=== PATIENT | female | born 1980 | race Two or more races ===

== ENCOUNTER 2017-03-09 03:45 | Emergency (ER) | payer SELFPAY ==
[~2017-03-09] VITALS: Ht 139.7 cm; Wt 70.8 kg
--- NOTE | 2017-03-09 03:48 | PHYS DOC ---
Past Medical History Past Medical History: Diabetes-Type II Past Surgical History: Other Additional Past Surgical Histo: vaginal surgery Alcohol Use: None Drug Use: None Adult General Chief Complaint Chief Complaint: VAGINAL BLEEDING HPI HPI Patient is a 36 year old female who presents with vaginal bleeding abdominal pain. She is a G3 P 3 whose LMP was February 22, 2017 and she did home test was positive. She states she started having pain yesterday in the afternoon in the day when she was using the bathroom and wiped she noticed some blood on her toilet paper. She denies any vaginal discharge. She did have some severe pain and started yesterday. Been constant in nature. She states nothing makes it better or worse. She denies any history of surgeries on her abdomen. He is not have an OB here in the , her babies were delivered in [facility]. Review of Systems Review of Systems Constitutional: Denies fever or chills [] Eyes: Denies change in visual acuity, redness, or eye pain [] HENT: Denies nasal congestion or sore throat [] Respiratory: Denies cough or shortness of breath [] Cardiovascular: No additional information not addressed in HPI [] GI: Positive for abdominal pain, Denies nausea, vomiting, bloody stools or diarrhea [] : Denies dysuria or hematuria [] Musculoskeletal: Denies back pain or joint pain [] Integument: Denies rash or skin lesions [] Neurologic: Denies headache, focal weakness or sensory changes [] Endocrine: Denies polyuria or polydipsia [] All other systems were reviewed and found to be within normal limits, except as documented in this note. Allergies Allergies Allergies Coded Allergies Type Severity Reaction Last Updated Verified No Known Drug Allergies 01/26/14 No Physical Exam Physical Exam Constitutional: Well developed, well nourished, no acute distress, non-toxic appearance. [] HENT: Normocephalic, atraumatic, bilateral external ears normal, oropharynx moist, no oral exudates, nose normal. [] Eyes: PERRLA, EOMI, conjunctiva normal, no discharge. [] Neck: Normal range of motion, no tenderness, supple, no stridor. [] Cardiovascular:Heart rate regular rhythm, no murmur [] Lungs & Thorax: Bilateral breath sounds clear to auscultation [] Abdomen Pelvic Exam: Help Desk Technician present Abdomen: Nontender External Genitalia: Normal Skin Speculum: Normal vaginal mucosa, minimal blood noted in the vault Bimanual: No adnexal masses or tenderness, No CMT: Bowel sounds normal, soft, mild tenderness palpation suprapubic area, no rebound or guarding, no masses, no pulsatile masses. [] Skin: Warm, dry, no erythema, no rash. [] Back: No tenderness, no CVA tenderness. [] Extremities: No tenderness, no cyanosis, no clubbing, ROM intact, no edema. [] Neurologic: Alert and oriented X 3, normal motor function, normal sensory function, no focal deficits noted. [] Psychologic: Affect normal, judgement normal, mood normal. [] Current Patient Data Vital Signs Vital Signs Date Time Temp Pulse Resp B/P (MAP) Pulse Ox O2 Delivery O2 Flow Rate FiO2 03/09/17 04:00 98.8 68 16 112/65 (81) 98 Room Air 98.8 Lab Values Laboratory Tests Test 03/09/17 04:15 03/09/17 04:19 03/09/17 04:20 Urine Collection Type Unknown Urine Color Yellow Urine Clarity Clear Urine pH 6.0 Urine Specific [place] >=1.030 Urine Protein Negative mg/dL (NEG-TRACE) Urine Glucose (UA) >=1000 mg/dL (NEG) Urine Ketones (Stick) Negative mg/dL (NEG) Urine Blood Large (NEG) Urine Nitrite Negative (NEG) Urine Bilirubin Negative (NEG) Urine Urobilinogen Dipstick 0.2 mg/dL (0.2 mg/dL) Urine Leukocyte Esterase Negative (NEG) Urine RBC 11-20 /HPF (0-2) Urine WBC 5-10 /HPF (0-4) Urine Squamous Epithelial Cells Mod /LPF Urine Bacteria Moderate /HPF (0-FEW) Urine Mucus Mod /LPF POC Urine HCG, Qualitative Hcg positive (Negative) White Blood Count 8.0 x10^3/uL (4.0-11.0) Red Blood Count 4.55 x10^6/uL (3.50-5.40) Hemoglobin 13.7 g/dL (12.0-15.5) Hematocrit 40.8 % (36.0-47.0) Mean Corpuscular Volume 90 fL (79-100) Mean Corpuscular Hemoglobin 30 pg (25-35) Mean Corpuscular Hemoglobin Concent 34 g/dL (31-37) Red Cell Distribution Width 13.1 % (11.5-14.5) Platelet Count 243 x10^3/uL (140-400) Neutrophils (%) (Auto) 55 % (31-73) Lymphocytes (%) (Auto) 36 % (24-48) Monocytes (%) (Auto) 7 % (0-9) Eosinophils (%) (Auto) 1 % (0-3) Basophils (%) (Auto) 0 % (0-3) Neutrophils # (Auto) 4.4 x10^3uL (1.8-7.7) Lymphocytes # (Auto) 2.9 x10^3/uL (1.0-4.8) Monocytes # (Auto) 0.6 x10^3/uL (0.0-1.1) Eosinophils # (Auto) 0.1 x10^3/uL (0.0-0.7) Basophils # (Auto) 0.0 x10^3/uL (0.0-0.2) Prothrombin Time 12.9 SEC (11.7-14.0) Prothrombin Time INR 1.0 (0.8-1.1) PTT 26 SEC (24-38) Maternal Serum HCG Beta Subunit 2343 mIU/mL (0-5) H Sodium Level 135 mmol/L (136-145) L Potassium Level 3.8 mmol/L (3.5-5.1) Chloride Level 100 mmol/L (98-107) Carbon Dioxide Level 26 mmol/L (21-32) Anion Gap 9 (6-14) Blood Urea Nitrogen 10 mg/dL (7-20) Creatinine 0.6 mg/dL (0.6-1.0) Estimated GFR (Cockcroft-Gault) 114.4 Glucose Level 255 mg/dL (70-99) H Calcium Level 9.0 mg/dL (8.5-10.1) Total Bilirubin 0.3 mg/dL (0.2-1.0) Direct Bilirubin 0.1 mg/dL (0.0-0.2) Aspartate Amino Transferase (AST) 12 U/L (15-37) L Alanine Aminotransferase (ALT) 22 U/L (14-59) Alkaline Phosphatase 71 U/L (46-116) Total Protein 6.8 g/dL (6.4-8.2) Albumin 3.5 g/dL (3.4-5.0) Laboratory Tests 03/09/17 04:20 Laboratory Tests 03/09/17 04:20 Microbiology 03/09/17 Wet Prep - Final, Complete EKG EKG [] Radiology/Procedures Radiology/Procedures [facility] [address] [place] [address] IMAGING REPORT Signed PATIENT: JEAN-PIERRE SILVEIRA ACCOUNT: [id number] : 1980 LOCATION: ER AGE: 36 SEX: F EXAM STATUS: REG ER ORD. PHYSICIAN: JHONNY GUERRERO MD REASON: bleeding PROCEDURE: OB < 14 WKS INDICATION: SPOTTING , NO HCG QUANT @ THIS TIME, POSITIVE PREG TEST COMPARISON: None. TECHNIQUE: Grayscale and color ultrasound images uterus and adnexa. Transabdominal and transvaginal images obtained. FINDINGS: Uterus: 110 x 62 x 54 mm. Intrauterine gestational sac is identified with a pole with a crown-rump length of 4.4 mm. Heart beat of 88. Small free fluid Right Ovary: 31 x 23 x 14 mm. Left Ovary: 34 x 17 x 16 mm. Vascular flow identified to bilateral ovaries. IMPRESSION: 1. Intrauterine gestational sac is identified with a pole with estimated gestational age of 6 weeks and 1 day with estimated due date of 11/01/2017. heartbeat is 88 at time of examination. This heartbeat is low which could be secondary to very early but close monitoring will be needed to ensure appropriate development given the low heart rate. Electronically signed by: Poly Llanos MD (03/09/2017 5:22 AM) [facility] DICTATED and SIGNED BY: POLY LLANOS MD DATE: 03/09/17 0518 CC: JHONNY GUERRERO MD; NO PCP ~ Impressions: Threatened miscarriage Course & Med Decision Making Course & Med Decision Making Pertinent Labs and Imaging studies reviewed. (See chart for details) Labs, wet prep pending at this time. Patient being checked out to Dr. Mack for final disposition. Dragon Disclaimer Dragon Disclaimer This electronic medical record was generated, in whole or in part, using a voice recognition dictation system. Departure Departure Referrals: NON,STAFF (PCP) JHONNY GUERRERO MD Mar 09, 2017 03:48
[2017-03-09 04:35] LABS: BASO % 0 % (0-3); EOS % 1 % (0-3); HEMATOCRIT 40.8 % (36.0-47.0); HEMOGLOBIN 13.7 g/dL (12.0-15.5); LYMPH # 2.9 x10^3/uL (1.0-4.8); LYMPH % 36 % (24-48); MEAN CORPUSCULAR HEMOGLOBIN 30 pg (25-35); MEAN CORPUSCULAR HGB CONC 34 g/dL (31-37); MEAN CORPUSCULAR VOLUME 90 fL (79-100); MONO % 7 % (0-9); NEUT % 55 % (31-73); PLATELET COUNT 243 x10^3/uL (140-400); RED BLOOD COUNT 4.55 x10^6/uL (3.50-5.40); RED CELL DISTRIBUTION WIDTH 13.1 % (11.5-14.5)
[2017-03-09 04:46] LABS: PROTHROMBIN TIME PATIENT 12.9 SEC (11.7-14.0)
[2017-03-09 04:47] LABS: CREATININE 0.6 mg/dL (0.6-1.0); GFR 114.4; POTASSIUM 3.8 mmol/L (3.5-5.1)
[2017-03-09 04:49] LABS: BILIRUBIN,URINE NEGATIVE (NEG); GLUCOSE,URINE >=1000 mg/dL (NEG); NITRITE,URINE NEGATIVE (NEG); PROTEIN,URINE NEGATIVE (NEG-TRACE); UROBILINOGEN,URINE 0.2 mg/dL (0.2 mg/dL)
[2017-03-09 04:53] LABS: ALBUMIN 3.5 g/dL (3.4-5.0); DIRECT BILIRUBIN 0.1 mg/dL (0.0-0.2); TOTAL BILIRUBIN 0.3 mg/dL (0.2-1.0); TOTAL PROTEIN 6.8 g/dL (6.4-8.2)
[2017-03-09 05:03] LABS: BACTERIA,URINE MODERATE /HPF (0-FEW); SQUAMOUS EPITHELIAL CELL,UR MOD /LPF
--- NOTE | 2017-03-09 05:26 | RAD ---
INDICATION: SPOTTING , NO HCG QUANT @ THIS TIME, POSITIVE PREG TEST COMPARISON: None. TECHNIQUE: Grayscale and color ultrasound images uterus and adnexa. Transabdominal and transvaginal images obtained. FINDINGS: Uterus: 110 x 62 x 54 mm. Intrauterine gestational sac is identified with a pole with a crown-rump length of 4.4 mm. Heart beat of 88. Small free fluid Right Ovary: 31 x 23 x 14 mm. Left Ovary: 34 x 17 x 16 mm. Vascular flow identified to bilateral ovaries. IMPRESSION: 1. Intrauterine gestational sac is identified with a pole with estimated gestational age of 6 weeks and 1 day with estimated due date of 11/01/2017. heartbeat is 88 at time of examination. This heartbeat is low which could be secondary to very early but close monitoring will be needed to ensure appropriate development given the low heart rate. Electronically signed by: Chay Mcclain MD (03/09/2017 5:22 AM) [facility]
[2017-03-09] MEDS ORDERED: fentaNYL PF VIAL 100 MCG/2 ML VIAL IV PRN (06:00)
[2017-03-09] MEDS ORDERED: NITR100C62 PO (06:19)
[2017-03-09 06:33] VITALS: BP 93/54
== END 2017-03-09 06:43 | disposition home or self-care (01) ==
LOC: ER 03:45
DX: O20.0 Threatened abortion (principal); O24.911 Unspecified diabetes mellitus in pregnancy, first trimester; Z3A.01 Less than 8 weeks gestation of pregnancy; Z98.890 Other specified postprocedural states
CPT/HCPCS: 36415; 76801; 80048; 80076; 81001; 81025; 84702; 85025; 85610; 85730; 86900; 86901; 87086; 87491; 87591; 96374; 99285; J3010; Q0111

== ENCOUNTER 2017-03-09 18:29 | Emergency (ER) | payer SELFPAY ==
[~2017-03-09 18:29] MED LIST: NITR100C62 PO
--- NOTE | 2017-03-09 19:27 | PHYS DOC ---
Past Medical History Past Medical History: Diabetes-Type II Past Surgical History: Other Additional Past Surgical Histo: vaginal surgery Alcohol Use: None Drug Use: None Adult General Chief Complaint Chief Complaint: VAGINAL BLEEDING [facility] HPI Patient is a 36 year old female presents the ED complaining of vaginal bleeding 2 hours. Patient states she is 6 weeks . Last menstrual period was January 22, 2017. Patient has not had kids in 16 years. Patient has 3 living children. No history of miscarriages. Complains of lower abdominal cramping. States she was seen in the ED last night around 3 AM. States she was told everything was fine so she went home. Patient returned because she's had some more vaginal bleeding starting around 5pm. No bleeding since that episode. Denies fever, nausea/vomiting, back pain, chest pain, shortness of breath, dizziness, weakness, headache or vision changes. Review of Systems Review of Systems Constitutional: Denies fever or chills [] Eyes: Denies change in visual acuity, redness, or eye pain [] HENT: Denies nasal congestion or sore throat [] Respiratory: Denies cough or shortness of breath [] Cardiovascular: No additional information not addressed in HPI [] GI: Complains of abdominal cramping. Denies nausea, vomiting, bloody stools or diarrhea [] : Denies dysuria or hematuria [] Musculoskeletal: Denies back pain or joint pain [] Integument: Denies rash or skin lesions [] Neurologic: Denies headache, focal weakness or sensory changes [] Endocrine: Denies polyuria or polydipsia [] All other systems were reviewed and found to be within normal limits, except as documented in this note. Allergies Allergies Allergies Coded Allergies Type Severity Reaction Last Updated Verified No Known Drug Allergies 01/26/14 No Physical Exam Physical Exam Constitutional: Well developed, well nourished, no acute distress, non-toxic appearance. [] HENT: Normocephalic, atraumatic, bilateral external ears normal, oropharynx moist, no oral exudates, nose normal. [] Eyes: PERRLA, EOMI, conjunctiva normal, no discharge. [] Neck: Normal range of motion, no tenderness, supple, no stridor. [] Cardiovascular:Heart rate regular rhythm, no murmur [] Lungs & Thorax: Bilateral breath sounds clear to auscultation [] Abdomen: Bowel sounds normal, soft, no tenderness, no masses, no pulsatile masses. [] Refused /pelvic exam. Skin: Warm, dry, no erythema, no rash. [] Back: No tenderness, no CVA tenderness. [] Extremities: No tenderness, no cyanosis, no clubbing, ROM intact, no edema. [] Neurologic: Alert and oriented X 3, normal motor function, normal sensory function, no focal deficits noted. [] Psychologic: Affect normal, judgement normal, mood normal. [] Current Patient Data Vital Signs Vital Signs Date Time Temp Pulse Resp B/P (MAP) Pulse Ox O2 Delivery O2 Flow Rate FiO2 03/09/17 21:50 72 18 96/53 (67) 96 Room Air Lab Values Laboratory Tests Test 03/09/17 19:26 03/09/17 20:05 White Blood Count 8.1 x10^3/uL (4.0-11.0) Red Blood Count 4.77 x10^6/uL (3.50-5.40) Hemoglobin 14.4 g/dL (12.0-15.5) Hematocrit 42.7 % (36.0-47.0) Mean Corpuscular Volume 90 fL (79-100) Mean Corpuscular Hemoglobin 30 pg (25-35) Mean Corpuscular Hemoglobin Concent 34 g/dL (31-37) Red Cell Distribution Width 13.0 % (11.5-14.5) Platelet Count 261 x10^3/uL (140-400) Neutrophils (%) (Auto) 63 % (31-73) Lymphocytes (%) (Auto) 29 % (24-48) Monocytes (%) (Auto) 7 % (0-9) Eosinophils (%) (Auto) 1 % (0-3) Basophils (%) (Auto) 1 % (0-3) Neutrophils # (Auto) 5.1 x10^3uL (1.8-7.7) Lymphocytes # (Auto) 2.3 x10^3/uL (1.0-4.8) Monocytes # (Auto) 0.5 x10^3/uL (0.0-1.1) Eosinophils # (Auto) 0.1 x10^3/uL (0.0-0.7) Basophils # (Auto) 0.1 x10^3/uL (0.0-0.2) Maternal Serum HCG Beta Subunit 2096 mIU/mL (0-5) H Sodium Level 136 mmol/L (136-145) Potassium Level 4.0 mmol/L (3.5-5.1) Chloride Level 101 mmol/L (98-107) Carbon Dioxide Level 27 mmol/L (21-32) Anion Gap 8 (6-14) Blood Urea Nitrogen 8 mg/dL (7-20) Creatinine 0.6 mg/dL (0.6-1.0) Estimated GFR (Cockcroft-Gault) 114.4 BUN/Creatinine Ratio 13 (6-20) Glucose Level 301 mg/dL (70-99) H Calcium Level 9.6 mg/dL (8.5-10.1) Total Bilirubin 0.3 mg/dL (0.2-1.0) Aspartate Amino Transferase (AST) 11 U/L (15-37) L Alanine Aminotransferase (ALT) 23 U/L (14-59) Alkaline Phosphatase 84 U/L (46-116) Total Protein 7.4 g/dL (6.4-8.2) Albumin 3.7 g/dL (3.4-5.0) Albumin/Globulin Ratio 1.0 (1.0-1.7) Urine Collection Type Void Urine Color Yellow Urine Clarity Clear Urine pH 7.5 Urine Specific [place] 1.020 Urine Protein Negative mg/dL (NEG-TRACE) Urine Glucose (UA) >=1000 mg/dL (NEG) Urine Ketones (Stick) Negative mg/dL (NEG) Urine Blood Large (NEG) Urine Nitrite Negative (NEG) Urine Bilirubin Negative (NEG) Urine Urobilinogen Dipstick 0.2 mg/dL (0.2 mg/dL) Urine Leukocyte Esterase Negative (NEG) Urine RBC Tntc /HPF (0-2) Urine WBC 1-4 /HPF (0-4) Urine Squamous Epithelial Cells Occ /LPF Urine Bacteria Few /HPF (0-FEW) Laboratory Tests 03/09/17 19:26 Laboratory Tests 03/09/17 19:26 EKG EKG [] Radiology/Procedures Radiology/Procedures PROCEDURE: OB < 14 WKS OB ultrasound less than 14 weeks and transvaginal OB ultrasound HISTORY: Vaginal bleeding and Sonographic examination of the was performed by transabdominal and endovaginal technique. Multiple static images were obtained. COMPARISON: 4:32 AM OB ultrasound less than 14 weeks: The uterus and ovaries are not well seen due to overlying bowel gas. Transvaginal OB ultrasound: The uterus is homogeneous. The endometrium appears normal and measures 5 mm in thickness. The ovaries are seen with normal blood flow. The left ovary measures 1.7 x 2.6 x 2.1 cm. The right is not seen. IMPRESSION: No sonographic evidence of . Findings consistent with complete miscarriage.[] Course & Med Decision Making Course & Med Decision Making Pertinent Labs and Imaging studies reviewed. (See chart for details) []Discussed lab and imaging findings with patient. Discussed what to be expected over the next few days. On reexamination, abdomen is soft nontender nondistended. No peritoneal signs. Tolerating PO. Sitting up in exam room and talking with family. Patient states she has information to follow up with OB/ [employer]. Discussed importance of follow-up this week. Discussed reasons to return to the ED. Patient understands and agrees with plan. Family at bedside. Dragon Disclaimer Dragon Disclaimer This electronic medical record was generated, in whole or in part, using a voice recognition dictation system. Departure Departure Impression: Primary Impression: Complete miscarriage Disposition: HOME, SELF-CARE Condition: STABLE Referrals: NO PCP (PCP) RENUKA HANKINS MD Patient Instructions: Miscarriage JAMES JERNIGAN Mar 09, 2017 19:27
[2017-03-09 19:45] LABS: BASO # 0.1 x10^3/uL (0.0-0.2); BASO % 1 % (0-3); EOS % 1 % (0-3); HEMATOCRIT 42.7 % (36.0-47.0); HEMOGLOBIN 14.4 g/dL (12.0-15.5); LYMPH # 2.3 x10^3/uL (1.0-4.8); LYMPH % 29 % (24-48); MEAN CORPUSCULAR HEMOGLOBIN 30 pg (25-35); MEAN CORPUSCULAR HGB CONC 34 g/dL (31-37); MEAN CORPUSCULAR VOLUME 90 fL (79-100); MONO % 7 % (0-9); NEUT % 63 % (31-73); PLATELET COUNT 261 x10^3/uL (140-400); RED BLOOD COUNT 4.77 x10^6/uL (3.50-5.40); WHITE BLOOD COUNT 8.1 x10^3/uL (4.0-11.0)
[2017-03-09 20:07] LABS: CALCIUM 9.6 mg/dL (8.5-10.1); CREATININE 0.6 mg/dL (0.6-1.0); GFR 114.4
[2017-03-09 20:09] LABS: ALBUMIN 3.7 g/dL (3.4-5.0); TOTAL BILIRUBIN 0.3 mg/dL (0.2-1.0); TOTAL PROTEIN 7.4 g/dL (6.4-8.2)
[2017-03-09 20:16] LABS: BILIRUBIN,URINE NEGATIVE (NEG); GLUCOSE,URINE >=1000 mg/dL (NEG); NITRITE,URINE NEGATIVE (NEG); PH,URINE 7.5; PROTEIN,URINE NEGATIVE (NEG-TRACE); UROBILINOGEN,URINE 0.2 mg/dL (0.2 mg/dL)
[2017-03-09 20:22] LABS: RBC,URINE TNTC /HPF (0-2)
[2017-03-09 20:23] LABS: BACTERIA,URINE FEW /HPF (0-FEW); SQUAMOUS EPITHELIAL CELL,UR OCC /LPF
--- NOTE | 2017-03-09 21:14 | RAD ---
OB ultrasound less than 14 weeks and transvaginal OB ultrasound HISTORY: Vaginal bleeding and Sonographic examination of the was performed by transabdominal and endovaginal technique. Multiple static images were obtained. COMPARISON: 4:32 AM OB ultrasound less than 14 weeks: The uterus and ovaries are not well seen due to overlying bowel gas. Transvaginal OB ultrasound: The uterus is homogeneous. The endometrium appears normal and measures 5 mm in thickness. The ovaries are seen with normal blood flow. The left ovary measures 1.7 x 2.6 x 2.1 cm. The right is not seen. IMPRESSION: No sonographic evidence of . Findings consistent with complete miscarriage. Electronically signed by: Abdullahi Mccray III, MD (03/09/2017 9:11 PM) [facility]
[2017-03-09 21:50] VITALS: BP 96/53
== END 2017-03-09 21:50 | disposition home or self-care (01) ==
LOC: ER 18:29
DX: O03.9 Complete or unspecified spontaneous abortion without complication (principal); O24.911 Unspecified diabetes mellitus in pregnancy, first trimester; Z3A.01 Less than 8 weeks gestation of pregnancy
CPT/HCPCS: 36415; 76801; 80053; 81001; 84702; 85025; 99285-25